=== PATIENT | female | born 1940 | race Caucasian/White ===

== ENCOUNTER 2019-01-16 18:08 | Inpatient (IN) | payer MEDICARE ==
[2019-01-16] VITALS (12 sets, daily range): BP systolic 135–205; BP diastolic 51–98; Ht 162.6 cm; Wt 90.1 kg
[~2019-01-16] VITALS: Ht 162.6 cm; Wt 90.1 kg
--- NOTE | ~2019-01-16 | CN ---
PATIENT NAME:KIMBERLY ISAAC MEDICAL RECORD: [id number] : 42 LOCATION:[id number] ADMIT DATE: 01/16/19 ACCOUNT: [id number] CONSULTING PHYSICIAN: ELENA CRUZ MD REFERRING PHYSICIAN: ELNEA CRUZ MD DATE OF CONSULTATION: 01/20/2019 HISTORY OF PRESENT ILLNESS: A 78-year-old female with a history of hypertension, more difficult as of late. She saw her primary care physician. She was on nadolol 10 mg a day and lisinopril 10 mg a day. She was to increase her lisinopril; however, in retrospect, she is uncertain if she did not increase her nadolol. She was found in [place] to have a 2:1 AV block. She was transferred here for higher level of care. PAST MEDICAL HISTORY: Includes; 1. History of hypertension. 2. Restless leg syndrome. SOCIAL HISTORY: Lives in [place]. Usually takes care of her ADLs. Nonsmoker, nondrinker. REVIEW OF SYSTEMS: The patient reports easy bruising but reports no swollen glands. The patient reports no fever, no night sweats, no significant weight gain, no significant weight loss. No significant exercise tolerance. The patient reports no dry eyes, no irritation, no vision change. Patient reports no difficulty hearing and no ear pain. Patient reports no frequent nose bleeds or nose and sinus problems. Patient reports on arm pain on exertion. No shortness of breath while lying down. No history of heart murmur. Patient reports no cough, no wheezing or coughing up blood. Patient reports no abdominal pain, no vomiting. Normal appetite. No diarrhea and not vomiting blood. No nausea and no constipation. Patient reports no incontinence. No difficulty urinating. No hematuria. No increased frequency. Patient reports no muscle aches. No weakness, no arthralgias, no back pain. No swelling of the extremities. Patient reports no abnormal mole, no jaundice, no rashes. Reports no loss of consciousness. No weakness and no numbness. No seizures, dizziness, or headaches. The patient reports no depression, no sleep disturbance, feeling safe in a relationship and no alcohol abuse. Patient reports on fatigue. Reports no runny nose or sinus pressure. No itching, no hives, and no frequent sneezing. PHYSICAL EXAMINATION: GENERAL: Pleasant female, appears younger than stated age. VITAL SIGNS: Blood pressure 112/62, pulse 64 varying to 30 with 2:1 AV block. NECK: No JVD or bruit. HEART: Regular. LUNGS: Lung [place], good air excursion. ABDOMEN: Soft, nontender. EXTREMITIES: Pulses are 2+. There is no edema. IMPRESSION: A 2:1 arteriovenous block, QRS complex is narrow, making it difficult to assess if infra or supra Hisian secondary to the beta-blockade. At this point, I would simply monitor to see if normal sinus rhythm returns, echocardiography study was ordered. Further recommendations based on above. TRANSINT:[id number] Voice Confirmation ID: [id number] DOCUMENT ID: [id number] CONSULT REPORT [id number] KIMBERLY ISAAC,ELENA Palacios MD CC: [id number] DICTATION DATE: 01/20/19 0853 PRIVATE DUTY LPN: 01/20/19 1254 DIS IN 01/17/19 [address] [place] [address]
[2019-01-16] MEDS ORDERED: ALDACTONE25 MG PO (18:16)
[2019-01-16] MEDS ORDERED: GLUCOPHAGE500 MG PO (18:17)
[2019-01-16] MEDS ORDERED: BUPROPION HCL150 M1 PO (18:17)
[2019-01-16] MEDS ORDERED: LISINOPRIL10 MG PO (18:17)
[2019-01-16] MEDS ORDERED: MOBIC7.5 MG PO (18:17)
--- NOTE | 2019-01-16 18:27 | NUR ---
PT TRANSFERRED FROM [facility], FLIGHTED IN
--- NOTE | 2019-01-16 18:46 | NUR ---
PROVIDED PT WITH SANDWICH AND WATER PER JOSHUA COUGHLIN
--- NOTE | 2019-01-16 19:07 | NUR ---
REPORT GIVEN TO CLAUDIA MEDINA
--- NOTE | 2019-01-16 20:42 | NUR ---
RECIEVED VIA STRETCHER FROM THE ED. ALERT AND ORIENTED X 4. BP 174/98, HR 77 SR. I AM ASSESSING THE PATIENT SHE DROPS TO 2ND AVB RATE 41, TOLLERATES WELL BUT SAID SHE CAN TELL. ASSESSMENT, HISTORY AND MED REC COMPLETED.
[2019-01-16] MEDS ORDERED: DOLOPHINE HCL5 MG PO (21:00)
[2019-01-16] MEDS ORDERED: HORIZANT PO (21:04)
--- NOTE | 2019-01-16 21:50 | NUR ---
SPOKE WITH DR CRUZ, UPDATE GIVEN. ORDER FOR INCREASE IN APRESOLINE TO EVERY 3 HOURS AND METHADONE (HOME MED) RESTARTED.
--- NOTE | 2019-01-16 23:57 | NUR ---
UP TO BSC. TOLLERATED WELL. SR ON THE MONITOR.
[2019-01-17] VITALS (15 sets, daily range): BP systolic 106–175; BP diastolic 53–98
--- NOTE | 2019-01-17 03:09 | NUR ---
EYES CLOSED, RESP EVEN AND UNLABORED. SR ON THE MONITOR.
[2019-01-17 03:39] LABS: BASOPHILS 0.5 % (0-2); EOSINOPHILS 2.2 % (0-7); HEMATOCRIT 40.1 % (36.0-48.0); IMMATURE GRANULOCYTES 0.4 % (0-5); MCH 27.5 pg (26.0-34.0); MCHC 32.4 g/dL (31.0-37.0); MEAN PLATELET VOLUME 9.9 fL (7.4-10.4); MONOCYTES 9.6 % (2-11); NEUTROPHILS 69.3 % (40-80); PLATELET COUNT 257 10x3/uL (130-400); RBC 4.72 10x6/uL (4.00-5.40); RDW 14.4 % (11.5-14.5)
[2019-01-17 03:48] LABS: ALBUMIN 3.3 g/dL (3.4-5.0); ALKALINE PHOSPHATASE 134 U/L (46-116); ALT (SGPT) 27 U/L (10-68); BILIRUBIN - TOTAL 0.39 mg/dL (0.2-1.3); CALC OSMOLALITY 283 mosm/kg (275-300); CALCIUM 8.9 mg/dL (8.5-10.1); CARBON DIOXIDE 28.8 mmol/L (21.0-32.0); CHLORIDE - SERUM 106 mmol/L (98-107); CREATININE - SERUM 0.6 mg/dL (0.6-1.3); GLUCOSE 90 mg/dL (74-106); PROTEIN - SERUM 6.9 g/dL (6.4-8.2); SODIUM 142 mmol/L (136-145); UREA NITROGEN 16 mg/dL (7-18); eGFR NON AFRICAN AMERICAN > 90 mL/min (90-120)
--- NOTE | 2019-01-17 06:10 | NUR ---
0500 RESTING QUIETLY ON BPAP 11/06 AT 50% 02 NO DISTRESS NOTED
--- NOTE | 2019-01-17 06:12 | NUR ---
0500 RESTING QUIETLY EASILY AWAKENS WHEN ENTERING ROOM REPOSITIONS SELF IN BED
--- NOTE | 2019-01-17 07:13 | NUR ---
0700 SITING UP ON BEDSIDE DANGLING LEGS VOICES NO COMPLAINTS
--- NOTE | 2019-01-17 08:45 | NUR ---
RECEIVED REPORT ON PATIENT. AWAKE AND ALERT SKIN WARM AND DRY. COLOR PALE. DENIES ANY PAIN, SHORTNESS OF BREATH OR DIZZYNESS. ALERT. AMBULATING IN ROOM WITHOUT ASSISTANCES. UP TO CHAIR AT BEDSIDE. NEWSPAPER PROVIDED. AMBULATES TO [facility] INDEPENTLY. MONITOR SR. SALINE LOCK X 2 IN RIGHT AND LEG ARM. NO REDNESS OR SWELLING.
--- NOTE | 2019-01-17 10:46 | NUR ---
DR. CRUZ HERE TALKED WITH PATIENT. TO BE DISCHARGED HOME
--- NOTE | 2019-01-17 11:25 | NUR ---
0900 VOICES NO COMPLAINTS REPOSITIONS SELF WITHOUT DIFFICULTY
--- NOTE | 2019-01-17 12:00 | NUR ---
REGULAR DIET SERVED ATE WELL. LISINOPRIL GIVEN.
--- NOTE | 2019-01-17 13:30 | NUR ---
DAUGHTER HERE, REVIEWED DISCHARGE INSTRUCTIONS WITH PATIENT AND DAUGHTER. PATIENT STATES SHE IS READY TO GO HOME. UNDERSTAND TO RETURN TO ER IF PROBLEMS DEVELOPE. PATIENT DISCHARGED PER WHEEL CHAIR.
--- NOTE | 2019-01-18 02:13 | DS ---
PATIENT:KIMBERLY ISAAC :42 MEDICAL RECORD: [id number] DISCHARGE SUMMARY ADMISSION DATE: 01/16/19 DISCHARGE DATE: 01/17/19 HOSPITAL COURSE: A 78-year-old female who transferred from [place] with tiredness and fatigue. She was found to be in second-degree heart block, difficult to tell if Mobitz 1 or 2, 2:1, QRS complex was negative leaning more towards a Wenckebach. Beta douglas was held, responded nicely, back to the sinus rhythm, increased the lisinopril 20 every day for hypertension control. Continue diuretic, discharged to home in good condition. Follow up with her primary care doctor. ACTIVITY: As tolerated. TRANSINT:[id number] Voice Confirmation ID: [id number] DOCUMENT ID: [id number] ELENA CRUZ MD at 0213 CC: [id number] DICTATION DATE: 01/17/19 1042 SUPERINTENDENT DISTRIBUTION: 01/18/19 0011 DIS IN 01/17/19 [id number] [place] [address]
== END 2019-01-17 14:41 | disposition home or self-care (01) | DRG 310 ==
LOC: D.ER 18:08 → D.ICU 19:13
PROVIDERS: Emergency Medicine; ADMIT Internal Medicine Interventional Cardiology; ATTEND Internal Medicine Interventional Cardiology
DX: I44.1 Atrioventricular block, second degree (principal); I10 Essential (primary) hypertension; E11.9 Type 2 diabetes mellitus without complications